=== PATIENT | male | born 1980 | race Caucasian/White ===

== ENCOUNTER → 2018-07-16 | Day surgery (SDC) | payer BC ==
[2018-07-15 16:24] LABS: BASOPHILS # (AUTO) 0.1 (0.0-0.1); BASOPHILS % 0.5 % (0.0-1.0); EOSINOPHILS # (AUTO) 0.1 (0.0-0.4); EOSINOPHILS % 1.3 % (0.0-6.0); HEMATOCRIT 45.7 % (38.2-49.6); HEMOGLOBIN 15.6 g/dL (14.0-18.0); LYMPHOCYTES # (AUTO) 2.6 (1.0-3.2); LYMPHOCYTES % 25.9 % (18.0-39.1); MEAN CORPUSCULAR HEMOGLOBIN 29.4 pg (28-32); MEAN CORPUSCULAR HGB CONC 34.1 g/dL (31-35); MEAN CORPUSCULAR VOLUME 86.2 fL (81-99); MONOCYTES # (AUTO) 0.5 (0.2-0.8); MONOCYTES % 4.9 % (4.4-11.3); NEUTROPHILS # (AUTO) 6.7 (2.1-6.9); PLATELET COUNT 311 x10e3/uL (140-360); RED CELL DISTRIBUTION WIDTH 12.7 % (11.7-14.4)
[2018-07-15 16:42] LABS: ANION GAP 15.2 mmol/L (8-16); BLOOD UREA NITROGEN 12 mg/dL (7-26); BUN/CREATININE RATIO 14 (6-25); CALCIUM 10.5 mg/dL (8.4-10.2); CARBON DIOXIDE 28 mmol/L (22-29); CHLORIDE 100 mmol/L (98-107); CREATININE, SERUM 0.88 mg/dL (0.72-1.25); EST GLOMERULAR FILTRATION RATE > 60 ML/MIN (60-); GLUCOSE 154 mg/dL (74-118); POTASSIUM 4.2 mmol/L (3.5-5.1); SODIUM 139 mmol/L (136-145)
[~2018-07-16] MED LIST: BACITRACIN ZINC 15 GM OINT ONE; BUPIVACAINE 0.25%/EPI 30ML SDV INJ ONE; CEFAZOLIN SOD 1 GM VIAL ONE; CRESTOR10 MG PO; DEXAMETHASONE SOD PHOS INJ 4 MG/ML VIAL ONE; FENTANYL CITRATE/PF 100MCG/2 ML INJ ONE; HYDROCODONE/APAP 7.5MG-325MG 1 EA TAB ONE; LIDOCAINE HCL 1% LOCAL INJ 20 ML VIAL ONE; LIDOCAINE HCL 2% JELLY 5 ML TUBE ONE; LIDOCAINE HCL 2% LOCAL INJ 5 ML SDV VIAL INJ ONE; METOCLOPRAMIDE HCL 10 MG/2ML VIAL ONE; MIDAZOLAM HCL 2 MG/2 ML VIAL ONE; MORPHINE SULFATE INJ 10 MG/ML ONE; ONDANSETRON HCL INJ 2MG/ML 2ML 2 MG/ML VIAL ONE; PROPOFOL IV EMULSION 10 MG/ML 20 ML VIAL ONE; ROCURONIUM BROMIDE 10 MG/ML 5ML VIAL ONE; SEVOFLURANE INHAL SOLN 250 ML PEN BTL ONE
[2018-07-16 12:50] VITALS: BP 131/85
--- NOTE | 2018-07-16 17:11 | Operative Report ---
DATE OF PROCEDURE: 07/16/2018 SURGEON: Matt Bonilla MD PREOPERATIVE DIAGNOSIS: Large lipoma of the nuchal region. POSTOPERATIVE DIAGNOSIS: Large lipoma of the nuchal region. PROCEDURE PERFORMED: Wide excision of large lipoma of the nuchal region. ANESTHESIA: General endotracheal. ESTIMATED BLOOD LOSS: Minimal. DRAINS: None. COMPLICATIONS: None. INDICATION AND FINDINGS: This is a 37-year-old male with several year history of a soft tissue mass of the nuchal area, increasing in size, interfering with the daily activities. INTRAOPERATIVE FINDINGS: The patient had about a 15 x 20 cm lipoma located in the nuchal region directly underneath a large skin tattoo. The lipoma was poorly encapsulated containing multiple septations except for one area of it, which was located to the left of the midline and inferiorly which is well defined. Because of this, the dissection was somewhat tedious. At some point, the lipoma was attached to the deep fascia and we had to remove some of it to be able to excise the lipoma. There was no other infiltration of the fascia per se. The closure was carried on in such a way that we were able to put the tattoo back to itself with matching lines being sutured to themselves in such a way as to create cosmetic acceptable results, not to interfere with the physical appearance of the tattoo. Because of this, this operation took longer than usual. DESCRIPTION OF PROCEDURE: With the patient lying on the operating table in the supine position and after administration of general anesthesia, he was placed in the prone position, prepped and draped, given prophylactic antibiotic with 1 g of Ancef due to the extensive flaps that were created. The incision was carried down through skin and subcutaneous tissue until the lipoma was identified. Initially, it was poorly encapsulated. We continued the dissection superiorly, inferiorly, medially, and laterally down to the fascia and laterally over the trapezius muscles bilaterally. Once we got down to the fascia, we began mobilizing the lipoma, one part of it which was about 7 cm was well defined. We continued the dissection until we are able to remove the entire lipoma with all these loculations. The trapezius muscles were left intact, but some of the fascia had to be removed in order to be able to excise the lipoma. The wound was irrigated. Bleeding points were cauterized. Then, the wound was closed in layers using 2-0 and 3-0 Vicryl for the soft tissues and the skin was closed using 3-0 silk as previously described. Two 10 mm flat Edmund-Colbert drains were placed to drain the operative field due to the large space. The area was infiltrated with 0.25% Marcaine with epinephrine as a field block, not an incisional block. At this point, then the drains were connected to self suction and the patient was taken to recovery room in stable condition. MD AMNA Tapia/MODL /[id number]
== END | disposition home or self-care (01) ==
LOC: OR 06:33
PROVIDERS: ATTEND Surgery
DX: D17.0 Benign lipomatous neoplasm of skin and subcutaneous tissue of head, face and neck (principal); Z01.812 Encounter for preprocedural laboratory examination; Z87.891 Personal history of nicotine dependence
CPT/HCPCS: 11426; 12045; 36415; 80048; 85025; 88304; J0690; J1100; J2001 ×2; J2250; J2405; J2704; J2765; J2270